=== PATIENT | male | born 2000 | race Caucasian/White ===

== ENCOUNTER 2020-07-30 13:26 | Emergency (ER) | payer OTHER, SELFPAY ==
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
--- NOTE | ~2020-07-30 | XR_ITS ---
EXAMINATION: XR clavicle LT INDICATION: Left clavicle pain, initial encounter TECHNIQUE: Two views of the left clavicle are obtained. COMPARISON: None available FINDINGS: There is an acute, traumatic, comminuted fractures of the mid clavicle. The distal fracture fragment is inferiorly displaced by one shaft width and overriding. Alignment at the acromioclavicul ar joint appears normal. Soft tissue swelling surrounds the fracture. IMPRESSION: 1. Comminuted, displaced and overriding fracture of the left mid clavicle. Reviewed, dictated and finalized at location A. ENT CENTERED CARE SPECIALIST
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
--- NOTE | ~2020-07-30 | XR_ITS ---
EXAMINATION: XR shoulder LT min 2V INDICATION: Left shoulder pain, initial encounter TECHNIQUE: Three views of the left shoulder are obtained. COMPARISON: None available FINDINGS: There is an acute, comminuted fracture of the mid clavicle. The distal fracture fragment is caudally displaced by one shaft width and overriding. Alignment at the acromioclavicular joint appea rs to be maintained. No additional acute fracture is identified. IMPRESSION: 1. Comminuted, displaced and overriding fracture of the mid clavicle. Reviewed, dictated and finalized at location A. ERIES MANAGEMENT BIOLOGIST
[2020-07-30 13:30] VITALS: BP 144/88; PULSE 72; RESP 18; TEMP 36.6; O2SAT 100
[2020-07-30] MEDS: ONDANSETRON INJ 4 MG/2 ML VIAL IV PUSH (14:46)
[2020-07-30] MEDS: MORPHINE SULFATE (*CRX) 4 MG/ML INJ 2 MG IV PUSH (14:47)
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
[2020-07-30 14:49] VITALS: BP 131/64; PULSE 70; RESP 18; O2SAT 100
[2020-07-30 15:17] VITALS: TEMP 36.6
[2020-07-30 15:19] VITALS: TEMP 36.6
--- NOTE | 2020-07-30 15:30 | PC.NURSE ---
[facility] accepted transfer to [facility] ETA 30min Trip # [phone]
--- NOTE | 2020-07-30 16:06 | PC.NURSE ---
Dr. Poole at bedside, states don't place sling at this time. Conchita WONG notified.
--- NOTE | 2020-07-30 16:46 | PC.NURSE ---
Patient transferred to [place] via [facility] at this time.
== END 2020-07-30 16:47 | disposition short-term general hospital (02) ==
PROVIDERS: Emergency Provider Emergency Medicine
DX: S42.022A Displaced fracture of shaft of left clavicle, initial encounter for closed fracture (principal); S12.691A Other nondisplaced fracture of seventh cervical vertebra, initial encounter for closed fracture; V86.55XA Driver of 3- or 4- wheeled all-terrain vehicle (ATV) injured in nontraffic accident, initial encounter
CPT/HCPCS: 70450; 71045; 72125; 72170; 73000; 73030; 73080; 96374; 96375; 99285; A4565; J0131; J2270; J2405

== ENCOUNTER 2023-03-12 07:58 | Outpatient (CLI) | payer OTHER, SELFPAY ==
--- NOTE | ~2023-03-12 | MR_ITS ---
EXAMINATION: MR knee LT wo con DATE: 03/12/2023 08:46 INDICATION: Patellar dislocation TECHNIQUE: Magnetic resonance imaging (MRI) of the left knee was performed without intravenous contra st. Sequences included coronal PD-weighted FSE, coronal PD-weighted FS FSE, sagittal T2-weighted FSE , sagittal PD-weighted FS FSE and axial PD weighted fat saturated FSE. COMPARISON: None. FINDINGS: Medial compartment: Medial meniscus is normal. There appears to be mild nonuniform partial-thickness cartilage loss with smooth chondral surface along the medial side of the medial tibial plateau and anterior weightbearing medial femoral condyle. There is mild subarticular edema-like marrow signal change along the medial rim of both the medial tibial plateau and anterior weightbearing medial femoral condyle. Lateral compartment: Lateral meniscus is normal. There is a nondisplaced linear low signal intensity fracture line along t he medial margin of the anterior weightbearing lateral femoral condyle likely related to a patellar d islocation/relocation injury. The overlying articular cartilage appears to remain normal as does the remaining articular cartilage in the lateral compartment. Patellofemoral compartment: There is an associated small nondisplaced osteochondral impaction fracture along the inferomedial mar gin of the medial patellar facet with focal mild depression of the bone and some fissuring of the ove rlying cartilage. Remaining articular cartilage is normal. Ligaments and tendons: Anterior and posterior cruciate ligaments are normal. The fibular collateral ligament complex is norm al. There is mild thickening and mild increased signal of the junction the medial patellofemoral reti naculum and the anterior margin of the proximal medial collateral ligament consistent with mild parti al tear. The more posterior majority of the cross-sectional area of the medial collateral ligament re maura normal. The quadriceps tendon is normal. Mild patellar tendinopathy without definite discrete t ear but with a few bands of magic angle artifact at the distal aspect of the tendon. The visualized m edial and lateral hamstring tendons as well as the iliotibial band are normal. Fluid: Moderate-sized layering lipohemarthrosis at the suprapatellar pouch. There is also subcutaneous edema about the knee most prominent posteriorly anteriorly and posteriorly. No loose osteochondral bodies identified. Osseous/other: Small region of cortically based low signal along the posterior metaphyseal region of the distal femu r without surrounding edema and with configuration of the low signal on axial images suggesting the s clerotic rim of old involuting fibrous cortical defect. There is marrow edema associated with the pre vious noted impaction fractures of the patella and medial femoral condyle. IMPRESSION: 1. Patellar dislocation/relocation injury pattern with impaction fractures at the medial rim of the a nterior weightbearing medial femoral condyle and anteroinferior patella, the latter with associated f ocal chondral injury. 2. Likely associated mild patellar tendinopathy and partial tear at the confluence of the medial haider llofemoral retinaculum and the proximal medial collateral ligament which appears otherwise grossly in tact. 3. Mild marrow edema along the medial rim of the medial tibial plateau and anterior weightbearing med ial femoral condyle with air appears to be some mild nonuniform partial-thickness cartilage loss in t his could be degenerative in etiology or related to additional bone contusions without discrete fract ure. 4. Moderate-sized lipohemarthrosis. 5. Cortically based lesion at the posterior metaphysis of the distal femur with location and appearan ce most consistent with a benign fibrous cortical defect but would recommend correlation with plain r adiographs for more definitive exclusion of any more concerning aggressive fe
== END 2023-03-12 07:59 | disposition home or self-care (01) ==
PROVIDERS: Visit Provider Family Medicine Sports Medicine
DX: M25.562 Pain in left knee (principal); M23.42 Loose body in knee, left knee; S83.005A Unspecified dislocation of left patella, initial encounter; M23.8X2 Other internal derangements of left knee
CPT/HCPCS: 73721

== ENCOUNTER 2023-07-15 14:02 | Emergency (ER) | payer OTHER, SELFPAY ==
--- NOTE | ~2023-07-15 | XR_ITS ---
XR ankle LT min 3V 07/15/2023 14:42 Indication: Left ankle pain Procedure: 3 views left ankle Comparison: No prior studies for comparison. Findings: There is a displaced medial malleolar fracture. The medial malleolus and talus are laterall y displaced with respect to the distal tibia. There is an oblique nondisplaced angulated fracture of the distal fibular diaphysis which is comminuted. There is also anterior translation of the talus wit h respect to the tibia. Impression: 1: Displaced fractures of the distal fibular diaphysis and medial malleolus with associated soft tiss ue swelling. Reviewed, dictated and finalized at location B. Impression: 1: Displaced fractures of the distal fibular diaphysis and medial malleolus wit h associated soft tissue swelling.
[2023-07-15 14:16] VITALS: BP 125/80; PULSE 130; RESP 20; TEMP 35.7; O2SAT 97
[2023-07-15 14:23] VITALS: BP 125/80; PULSE 130; RESP 20; TEMP 35.7; O2SAT 97
--- NOTE | 2023-07-15 14:34 | ED.LOWEXIN ---
HPI - Extremity Injury (Lower) General Chief Complaint: Extremity Injury, Lower Stated Complaint: Injured ankle Time Seen by Provider: 07/15/23 14:08 Source: patient Mode of arrival: ambulatory Limitations: no limitations History of Present Illness HPI Narrative: 0 1 is a 22-year-old male patient presenting to the clinic today with complaints of left ankle injury. This occurred around noon today while he was at work. States he was walking down an incline and slipped on some gravel and dirt. Thinks he may have everted his foot. Has moderate to severe swelling to the ankle. Rates pain at 8/10 currently. Related Data Allergies Allergy/AdvReac Type Severity Reaction Status Date / Time No Known Allergies Allergy Unverified 07/15/23 14:23 Review of Systems Review of Systems: Pertinent positives per HPI. Patient denies any fever, chills, rash, headache, visual changes, dizziness, cough, runny nose, sore throat, shortness of breath, chest pain, palpitations, nausea, vomiting, diarrhea, constipation, abdominal pain, or any urinary issues. [facility] Past Medical History Medical History No active medical problems Social History Social History Smoking status: Never smoker Substance use: never Gender identity (if verbalized by the patient): Male Comments At the time of my signature, I reviewed and agree with the nursing past medical, surgical, social, and family history. There is no relevant family history pertinent to the patient complaint. Exam Narrative: General: Well-developed, well nourished, in no apparent distress Head: Normocephalic, atraumatic. Cardio: Regular rate and rhythm, s1 and s2 normal, no murmur appreciated. Resp: Clear to auscultation bilaterally, no rhonchi, rales, wheezing or rubs. Musculoskeletal: No deformity, severe swelling to the left ankle noted with tenderness to palpation over the medial, limited range of motion due to pain and swelling, unable to walk on ankle without pain, muscle strength strong and equal, peripheral pulse strong, no edema, no cyanosis, normal gait and station Course Course Emergency Course: Portions of this record may have been created with voice recognition software. Level of Care: Express Care Visit Vital Signs Vital signs: Vital Signs Temperature 35.7 C L 07/15/23 14:16 Pulse Rate 130 H 07/15/23 14:16 Respiratory Rate 20 07/15/23 14:16 Blood Pressure 125/80 07/15/23 14:16 Pulse Oximetry 97 07/15/23 14:16 Oxygen Delivery Room Air 07/15/23 14:16 Temperature 35.7 C L 07/15/23 14:23 Pulse Rate 130 H 07/15/23 14:23 Respiratory Rate 20 07/15/23 14:23 Blood Pressure 125/80 07/15/23 14:23 Pulse Oximetry 97 07/15/23 14:23 Oxygen Delivery Room Air 07/15/23 14:23 Vital signs reviewed MDM - Extremity Injury (Lower) MDM Narrative Medical decision making narrative: At the time of visit patient is resting comfortably on the exam table. X-ray of the left ankle was performed and shows a medial malleolus fracture and displacement of the talus as well as a comminuted displaced fibula fracture. Contacted ortho on-call-Dr. Gibson and discussed case with him. He will see patient and the office this week. Short-leg posterior OCL applied and patient has his own crutches. Prescription for Wil[place] and Narcan was sent to the pharmacy. Supportive measures were discussed with the patient and the mother they voiced understanding discharge instructions agrees to treatment plan. Differential Diagnosis Differential diagnosis: Likely ankle sprain and strain and ankle fracture Imaging Data Radiologist's impression: ITS Impressions Ankle X-Ray 07/15/23 14:56 Impression: 1: Displaced fractures of the distal fibular diaphysis and medial malleolus with associated soft tissue swelling. Discharge Plan D
== END 2023-07-15 15:49 | disposition home or self-care (01) ==
PROVIDERS: Emergency Provider Nurse Practitioner Family
DX: S82.52XA Displaced fracture of medial malleolus of left tibia, initial encounter for closed fracture (principal); S82.832A Other fracture of upper and lower end of left fibula, initial encounter for closed fracture; W18.40XA Slipping, tripping and stumbling without falling, unspecified, initial encounter
CPT/HCPCS: 29515; 73610; 99214; G0463

== ENCOUNTER 2023-07-22 01:07 | Day surgery (SDC) | payer OTHER, SELFPAY ==
[2023-07-19 11:02] VITALS: BMI 36.2
--- NOTE | 2023-07-19 11:06 | PC.NURSE ---
Report to the Outpatient Waiting Room, entrance under the green pavilion located off [facility], at time 1230 on date 07/22/23. Planned Procedure Time: 1430. Time changes happen often and if your time is changed the preop area will call you the afternoon before. - You and your visitor will be asked to self-screen and do not enter if you have any COVID symptoms. - A mask is optional within the hospital at this time. Patients may have clear liquids (water, carbonated beverages, clear teas, apple juice) until 3 hours prior to surgery with a maximum of 20 ounces. - No food from midnight until time of surgery Take the following medications with a SIP of water the morning of surgery: PAIN PILL IF NEEDED DO NOT STOP ANY OF YOUR OTHER PRESCRIPTION MEDICATIONS PRIOR TO SURGERY ?EXCEPT THE FOLLOWING Medications to discontinue per physician: IBUPROFEN Date to take last dose: PT STATES DR. NATARAJAN SAID IT WAS OK TO CONTINUE Please no make-up, nail mohawk, hairspray, perfume, deodorant, or body powder the day of surgery. No jewelry (including any body piercings) or valuables the day of surgery, leave them at home. Please take a shower or bath the night before, or the morning of, surgery with an antibacterial soap. Wear comfortable, loose fitting clothing. - Jewelry must be removed prior to entering the operating room. Rings and piercings that are not removed may be cut off. - The hospital will not accept responsibility for valuables. - Please leave all valuables, including medications, at home the day of surgery. If you are going home after surgery, a licensed trash collector truck driver must drive you home. - NO public transportation without another adult if you receive anesthesia. - We recommend that an adult stay with you for 24 hours following discharge. - We also recommend that you do not drive, make important decision, drink alcoholic beverages, or take any drugs that were not prescribed by your health care provider for at least 24 hours after your discharge time. Follow any additional instructions given to you from your surgeon. If you or anyone in your household have experienced Covid symptoms in the past week, please notify your surgeon or the nurse liaison at the phone number below for possible testing. Telephone instructions given to PT - WESLEY ROCKWELL and asked if any additional questions and then verbalized understanding. Patient advised to call surgeon office or pre surgery nurse liaison [phone] if any additional questions.
[2023-07-22] VITALS (9 sets, daily range): BP systolic 132–161; BP diastolic 78–99; PULSE 90–108; RESP 12–18; TEMP 36.1–37.5; O2SAT 93–100
--- NOTE | ~2023-07-22 | XR_ITS ---
XR surgery orthopedic Indication: Intraoperative fixation of bimalleolar fracture TECHNIQUE: Fluoroscopy used during Intraoperative fixation of bimalleolar fracture performed by [Adarsh Gibson MD] on 07/22/2023. 2 minutes 25 seconds of fluoroscopy with 7 fluoroscopic image s captured. ] FINDINGS: Correlate with procedure note. IMPRESSION: Fluoroscopy used during Intraoperative fixation of bimalleolar fracture. Distal fibular a nd medial malleolar fractures are in anatomic alignment post surgical reduction with fibular sideplat e and screws. Reviewed, dictated and finalized at location A. IMPRESSION: Fluoroscopy used during Intraoperative fixation of bimalleolar frac ture. Distal fibular and medial malleolar fractures are in anatomic alignment p ost surgical reduction with fibular sideplate and screws.
--- NOTE | 2023-07-22 13:15 | P.PNAN_ITS ---
Anes - Initial Pre Proc Eval Procedure: Operation Date: 07/22/23 14:30 Proposed Procedures p Open Reduction Internal Fixation Bimalleolar Fracture Left Ankle With Tibia- Fibula Syndesmosis - Adarsh Gibson MD Date/Time: 07/22/23 13:15 Surgeon: Adarsh Gibson MD Pre Op Diagnosis: Bimalleolar Fx Rt Ankle Patient Data Age: 22 Gender: M Height: 1.91 m Weight: 131.55 kg Allergies Allergy/AdvReac Type Severity Reaction Status Date / Time No Known Allergies Allergy Verified 07/19/23 11:01 Home Medications Medication Instructions Recorded Confirmed Type hydrocodone 7.5 mg-acetaminophen 1 tablet PO Q6H PRN pain 3 days 07/19/23 07/19/23 Rx 325 mg tablet #30 tabs ibuprofen 600 mg tablet 600 mg PO QID PRN Pain 07/19/23 07/19/23 History Patient hx anesthesia problems: none Family hx anesthesia problems: other (brother slow to awaken) Results Review: All pre-operative results and documents have been reviewed as part of the pre- operative evaluation. [facility], [facility] Past Medical History Medical History Closed nondisplaced fracture of right lateral C7 vertebra Hx of fracture of clavicle No active medical problems Family History Family History Mother Hypertension Father Hypertension Social History Social History Smoking status: Never smoker Alcohol intake: current Drinks per week: 4 Alcohol use details: WEEKENDS Substance use: never Substance use type: does not use Lack of Transportation: No Lack of Food: Never True Current Housing: I Have Housing Concerned About Future Housing: No Difficulty Paying Gas/Electric Bills: No Difficulty Paying for Meds: No Education: High School Diploma/GED Difficulty w/ Childcare or Family Care: No Living arrangements: with family Gender identity (if verbalized by the patient): Male Spiritual care concerns: No Anes - Eval Final PreProcedure Day of Procedure 07/22/23 13:15 Patient weight: obese Heart: regular rate and rhythm Lungs: clear to auscultation Airway: Mallampati scale class II Neurological: alert and oriented Last oral intake: >/= 8 hours ASA classification: II Emergent: no Anesthetic plan: proceed Anesthesia type and monitoring: general LMA and standard monitoring Results Review: All pre-operative results and documents have been reviewed as part of the pre- operative evaluation. Informed Consent: The patient's anesthetic plan and its attendant risks and benefits were discussed with the patient/family/POA. Questions were solicited and answers provided to the satisfaction of the patient/family/POA.
[2023-07-22] MEDS: LACTATED RINGERS 1,000 ML 30 ML IV CONT ×2 (13:45→18:14)
[2023-07-22] MEDS: KETOROLAC 15 MG/ML VIAL (*BKC) IV PUSH (13:52)
[2023-07-22] MEDS: ACETAMINOPHEN 500 MG TABLET 1000 MG PO (13:52)
--- NOTE | 2023-07-22 14:40 | WPDHPUPDATE1 ---
History and Physical Update Update Date/Time: 07/22/23 14:40 History and Physical has been reviewed, including an updated exam of the patient. There are NO changes in the patient's condition. Risks, benefits, and alternatives have been discussed and questions answered. Patient agrees to proceed with procedure.
[2023-07-22] MEDS: ceFAZolin 3 GM/D5W 100 ML 100 ML IVPB (14:46)
[2023-07-22] MEDS: BUPIVACAINE/EPINEPHRINE 0.5% 50 ML VIAL 30 ML INFILTRATE (15:26)
--- NOTE | 2023-07-22 18:27 | W.PM.PROC2 ---
Procedure Note - Detailed Date of Procedure 07/22/23 Pre-op Diagnosis Bimalleolar Fx Rt Ankle, tib fib syndesmosis disruption. Post-op Diagnosis Same Procedure Performed ORIF bimalleolar ankle fracture with tibia- fibula syndesmosis fixation. Surgeon Adarsh Gibson MD Anesthesia General Findings Baker C fracture with proximal extension and comminution. Significant fracture blisters medial and lateral. These were drained and treated with Xeroform gauze. Description of Procedure A general anesthetic was administered. The limb was prepped and draped in the usual sterile fashion with a well-padded tourniquet high on the thigh. A bump was placed under the hip. The limb was exsanguinated and the tourniquet inflated to 300 millimeters of mercury during the procedure. A longitudinal incision was created at the distal fibula. Careful dissection was carried down to bone. Perineal nerve branches were protected. The fracture was carefully exposed. Callus and debris was irrigated from the wound. The fracture was brought out to length. Reduction was accomplished with the reduction forceps. The fixation plate was contoured. Fixation was performed with a combination of cortical and cancellous screws. Fluoroscopy was used throughout the procedure to confirm anatomic reduction and appropriate placement of the implants. The medial malleolus was exposed with a longitudinal incision. The fracture was cleared of debris and irrigated. Anatomic reduction was obtained with the reduction tool. Biplanar fluoroscopy was used to assess the fracture reduction and guide placement of the K-wire. Two K-wires were placed parallel across the fracture site. The screw lengths were measured and drilled distally only. The long, partially threaded screws were placed, and the K-wires removed. The syndesmosis was provisionally closed with the reduction clamp which aided in appropriate fixation of the fibula. After fixation of the medial malleolus and the fibula the syndesmosis was statically nearly reduced but dynamically unstable. Two K-wires were placed through the plate and across the syndesmosis proximal to the joint line. These were over drilled after confirmation of appropriate placement, and then the tight rope full placed. They were sequentially tightened and the syndesmosis maintained a very anatomic position. It was tested and found to be very secure. The tourniquet was released. Meticulous hemostasis was obtained. Wounds were closed in layers with 2-0 Vicryl suture 3-0 Monocryl suture and valerio. A sterile dressing with well padded posterior splint was applied. The patient was extubated and brought to the recovery room in stable condition. There were no complications. Implants Arthrex 1/3 tubular plate 12 hole. Multiple compression and locking screws. 4.0 mm cannulated screws for the medial malleolar fracture. Tight rope suture button fixation x2 for the syndesmosis. Estimated Blood Loss -50.0 Tourniquet Time 90 Complications No immediate complications Condition Stable Disposition [facility] - Charge Forward: Surgery Billing
[2023-07-22] MEDS: fentaNYL CITRATE INJ (*CRX) 100 MCG/2 ML VIAL 25 MCG IV PUSH ×6 (18:29→18:55)
[2023-07-22] MEDS: oxyCODONE HCL (*CRX) 5 MG TAB IR PO (19:35)
== END 2023-07-22 20:26 | disposition home or self-care (01) ==
PROVIDERS: Visit Provider Orthopaedic Surgery
PROC: (CPT 27814; principal; 2023-07-22 14:30)
DX: S93.431A Sprain of tibiofibular ligament of right ankle, initial encounter (principal); S82.841A Displaced bimalleolar fracture of right lower leg, initial encounter for closed fracture; Z79.891 Long term (current) use of opiate analgesic; E66.9 Obesity, unspecified; Z68.38 Body mass index [BMI] 38.0-38.9, adult; W17.2XXA Fall into hole, initial encounter
CPT/HCPCS: 27814; 27829; 99199; A9270; C1713; C1769; J0690; J1100; J1170; J1885; J2250; J2270; J2405; J2704; J3010; J7120

== ENCOUNTER 2023-10-01 13:57 | Outpatient (CLI) | payer OTHER, SELFPAY ==
--- NOTE | ~2023-10-01 | XR_ITS ---
EXAM: XR ankle LT min 3V DATE: 10/01/2023 14:11 HISTORY: Z47.89 -FOLLOW UP. LT ANKLE FX/SX 07/15 . COMPARISON: 08/30/2023, images only. 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 Uncomplicated appearing screw and plat e fixation of the left fibula. Uncomplicated screw fixation of the medial malleolus. Stable syndesmot ic fixation. Continued healing change in the distal fibular and medial malleolus fractures. No new ac kaiser fracture or dislocation. No lytic or blastic lesion. Joint spaces are maintained. No erosion or p eriosteal change. Soft tissues within normal limits. IMPRESSION: Evolving healing change in the distal left fibular and left medial malleolus fractures. S tatus post ORIF, no radiographic evidence of hardware complication. Reviewed, dictated and finalized at location K. SPOOLER IMPRESSION: Evolving healing change in the distal left fibular and left medial malleolus fractures. Status post ORIF, no radiographic evidence of hardware com plication.
== END 2023-10-01 13:58 | disposition home or self-care (01) ==
PROVIDERS: Visit Provider Orthopaedic Surgery
DX: S82.832D Other fracture of upper and lower end of left fibula, subsequent encounter for closed fracture with routine healing (principal); X58.XXXD Exposure to other specified factors, subsequent encounter; Z47.89 Encounter for other orthopedic aftercare
CPT/HCPCS: 73610

== ENCOUNTER 2024-11-13 10:57 | Outpatient (CLI) | payer OTHER, SELFPAY ==
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
--- OUTSIDE RECORDS SUMMARY | 2024-11-13 11:32 | XMS_ITS | Encounter Summary ---
Author Organization [facility] Address [address] [place]: [place] [address] Care Team Providers Care Enterprise Systems Manager Name Role Phone Brock Simpson MD Primary Care Provider [phone] Encounter Details Date Type Department Care Team (Late st Contact Info) Description 2000 Inpatient Historical Paras Calderón MD NO ADDRESS ON FILE Brock Simpson MD [address] [place] [phone] Single liveborn, born in hospital, delivered without mention of delivery (Primary Dx) Social History Tobacco Use Types Packs/Day Years Used Date Smoking Tobacco: Never Assessed Sex and Gender Information Value Date Recorded Sex Assigned at Not on file 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
--- OUTSIDE RECORDS SUMMARY | 2024-11-13 11:32 | XMS_ITS | Referral Summary ---
Author Organization [facility] Address [address] [place] [address] Care Team Providers Care Process Owner Name Role Phone Unavailable Primary Care Provider Unavailabl e Source Comments [facility],non-owned Affiliates and Associated Physician Practices is amultiple site organization consisting of ambulatory clinics and hospital sitesin [place], [place], [place] and [place]. This disclosure is being madepursuant to the Care Everywhere program and may not contain all information available regarding this patient. Last updated 18.[facility] Allergies No known active allergies Medications * Be aware that medications may not be up to date on this document. Alwaysverify current medications with the patient. Medication Sig Dispensed Refills Start Date End Date Status albuterol HFA (VENTOLIN HFA) 108 (90 BASE) MCG/ACT inhalerIndications:In fluenza Inhale 2 puffs by mouth every 6 hours as needed for Wheezing or Cough 1 Inhaler 11/28/2018 Active fluticasone propionate (FLONASE) 50 MCG/ACT nasal sprayIndications:Acut e sinusitis, recurrence not specified, unspecified location [place] 2 sprays into each nostril once daily 1 bottles 11/28/2018 Active Active Problems No known active problems Social History Tobacco Use Types Packs/Day Years Used Date Smoking Tobacco: Never Smokeless Tobacco: Never Comments:non smoking househo ld Sex and Gender Information Value Date Recorded Sex Assigned at Not on file Gender Identity Not on file Sexual Orientation Not on file Last Filed Vital Signs Vital Sign Reading Time Taken Comments Blood Pressure 108/72 11/28/2018 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
--- OUTSIDE RECORDS SUMMARY | 2024-11-13 11:32 | XMS_ITS | Referral Summary ---
Author Organization [facility] [facility] [place] Address [address] [place] [address] Care Team Providers Care Animal Handler Name Role Phone Unknown, Notinfile Primary Care Provider Unavail able Allergies No known active allergies Medications ibuprofen 200 mg tab/cap Take 1 tablet/caps ule (200 mg total) by mouth every 6 (six) hours as needed for pain Active Active Problems Problem Noted Date Diagnosed Date Spinal stenosis in cervical region 08/09/2020 Overview (08/09/2020): Added automatically from request for surgery [id number] Closed displaced fracture of seventh cervical ve rtebra 08/09/2020 Overview (08/09/2020): Added automatically from request for surgery [id number] Closed displaced fracture of sixth cervical vertebra with delayed healing 08/05/2020 Overview (08/05/2020): Added automatically from request for surgery [id number] Closed fracture of right side of occipital [...] (07/31/2020): Added automatically from request for surgery [id number] Immunizations Immunization Administration Dates Next Due DTaP [...] Polio, Unspecified 12/31/2001 Tdap 04/24/2011 Varicella 04/14/2015,03/25/2002 Social History Tobacco Use Types Packs/Day Years Used Date Smoking Tobacco: Never Smokeless Tobacco: Never Tobacco Cessation:Counseling Given: Not Answered Alcohol Use Standard Drinks/Week Comments No 0 (1 standard drink = 0.6 oz pur e alcohol) Sex and Gender Information Value Date Recorded Sex Assigned at Not on file 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 Gender Identity Not on file Sexual Orientation [...] 04/15/2023 9:16 AM CDT Plan of Treatment Not on file Medical Devices Implanted Type Area Lapidarist Device Identifier Shelf Expiration Date Model / Serial / Lot [employer]/Orth o [id number] Evos Mini 2.4mm 24mm Self Tap Cortex T7 Screw Bone Sterile - [id number] Implanted:Qty: 1 on 07/31/2020 by Vlad Rodríguez MD at [facility] Left: Clavicle [employer]/Ort ho [id number] / / [employer]/Orth o [id number] Evos 130mm 12 Hole Midshaft Clavicle Left Superior Small Plate - [id number] Implanted:Qty: 1 on 07/31/2020 by Marcos, Vlad Portillo MD at [facility] Left: Clavicle [employer]/Ort ho [id number] / / [employer]/Orth o [id number] Evos 2.4mm 16mm Self Tap Self Retaining Drive Small Bone Long - [id number] Implanted:Qty: 1 on 07/31/2020 by Vlad Rodríguez MD at [facility] Left: Clavicle [employer]/Ort ho [id number] / / [employer]/Orth o [id number] Evos Mini 2.4mm 24mm Self Tap Cortex T7 Screw Bone Sterile - [id number] Implanted:Qty: 1 on 07/31/2020 by Vlad Rodríguez MD at [facility] Left: Clavicle [employer]/Ort ho [id number] / / [employer]/Orth o [id number] Evos 2.4mm 14mm Self Tap Self Retaining Drive Small Bone Long - [id number] Implanted:Qty: 2 on 07/31/2020 by Vlad Rodríguez MD at [facility] Left: Clavicle [employer]/Ort ho [id number] / / [employer]/Orth o [id number] 2.4mm 3.8mm 20mm Self Retaining Screwdriver Self Tap Flat Head - [id number] Implanted:Qty: 2 on 07/31/2020 by Vlad Rodríguez MD at [facility] Left: Clavicle [employer]/Ort ho [id number] / / [employer]/Orth o [id number] Evos 3.5mm 12mm Self Tap Cortex Screw Bone Sterile - [id number] Implanted:Qty: 1 on 07/31/2020 by Vlad Rodríguez MD at [facility] Left: Clavicle [employer]/Ort ho [id number] / / [employer]/Orth o [id number] Evos 3.5mm 16mm Self Tap Cortex Screw Bone Sterile - [id number] Implanted:Qty: 2 on 07/31/2020 by Marcos, Vlad Portillo MD at [facility] Left: Clavicle [employer]/Ort ho [id number] / / [employer]/Orth o [id number] Evos 3.5mm 26mm Self Tap Cortex Screw Bone Sterile - [id number] Implanted:Qty: 1 on 07/31/2020 by Vlad Rodríguez MD at [facility] Left: Clavicle [employer]/Ort ho [id number] / / [employer]/Orth o [id number] Evos 3.5mm 22mm Self Tap Cortex Screw Bone Sterile - [id number] Implanted:Qty: 1 on 07/31/2020 by Vlad Rodríguez MD at [facility] Left: Clavicle [employer]/Ort ho [id number] / / [employer]/Orth o [id number] Evos Mini 121mm 20 Hole Flex Low Profile Variable Angle Small - [id number] Implanted:Qty: 1 on 07/31/2020 by Vlad Rodríguez MD at [facility] Left: Clavicle [employer]/Ort ho [id number] / / Musculoskeletal Transplant [id number] 12.6z20n5fb Frozen Spine 7d Lordotic Trapezoid Spacer Allograft - [id number] - [id number] Implanted:Qty: 1 on 08/23/2020 by Daniel Clement MD at [facility] N/A: Spine Cervical Musculoskeletal Transplant 01/29/2025 [id number] / [id number] / Musculoskeletal Transplant [id number] 12.0x81u1is Frozen Spine 7d Lordotic Trapezoid Spacer Allograft - [id number] - [id number] Implanted:Qty: 1 on 08/23/2020 by Daniel Clement MD at [facility] N/A: Spine Cervical Musculoskeletal Transplant 01/29/2025 [id number] / [id number] / [employer] [id number] 34mm 2 Level Spine Plate Bone - [id number] Implanted:Qty: 1 on 08/23/2020 by Daniel Clement MD at [facility] [employer] [id number] 34 / / [employer] [id number] Maxan 4mm 14mm Fix Angle Spine Screw Bone - [id number] Implanted:Qty: 2 on 08/23/2020 by Daniel Clement MD at [facility] [employer] 14-5215 14 / / [employer] [id number] 4mm 16mm Fix Screw Bone - [id number] Implanted:Qty: 4 on 08/23/2020 by Daniel Clement MD at [facility] [employer] 14-5215 16 / / Insurance A[employer] SIG [id number] [employer] COMMERCIAL GENERIC [facility] Advance Directives For more information, please contact: [phone] * Full Code (Latest Code Status on File) Date Activated Date Inactivated Comments 08/23/2020 3:47 PM 08/24/2020 6:32 PM * Full Code Date Activated Date Inactivated Comments 07/31/2020 1:40 AM 08/02/2020 12:07 AM Care Teams Animal Handler Relationship Specialty Start Date End Date Unknown, Notinfile PCP - General 09/25/24
--- OUTSIDE RECORDS SUMMARY | 2024-11-13 11:32 | XMS_ITS | Clinical Summary ---
Author Organization [facility] Address [address] [place] [address] Care Team Providers Care Natural History Collections Curator Name Role Phone Unavailable Primary Care Provider Unavailabl e Source Comments [facility],non-owned Affiliates and Associated Physician Practices is amultiple site organization consisting of ambulatory clinics and hospital sitesin [place], [place], [place] and [place]. This disclosure is being madepursuant to the Care Everywhere program and may not contain all information available regarding this patient. Last updated 18.[facility] Allergies No known active allergies Medications * [...] e sinusitis, recurrence not specified, unspecified location [place] 2 sprays into each nostril once daily 1 bottles 11/28/2018 Active Active Problems No known active problems Family History Medical History Relation Name Comments Hyperlipidemia Father Hypertension Father Hypertension Mother Relation Name Status [...] Comments Blood Pressure 108/72 11/28/2018 5:24 PM TRANSIT DRIVER Pulse 104 11/28/2018 5:24 PM TRANSIT DRIVER Temperature 37.2 C (98.9 F) 11/28/2018 5:24 PM TRANSIT DRIVER Respiratory Rate 16 11/28/2018 5:24 PM TRANSIT DRIVER Oxygen Saturation 97% 11/28/2018 5:24 PM TRANSIT DRIVER Inhaled Oxygen Concentration - - Weight 124.3 kg (274 lb) 11/28/2018 5:24 PM TRANSIT DRIVER Height 190.5 cm (6' 3 ) 11/28/2018 5:24 PM TRANSIT DRIVER Body Mass Index 34.25 11/28/2018 5:24 PM TRANSIT DRIVER Plan of Treatment Health Maintenance Due Date Last Done Comments HIV SCREENING 12/12/2015 HPV VACCINE (1 - Male 3-dose series) 12/12/2015 MENINGOCOCCAL (Group B) VACC INE (1 of 2 - Standard) 2016 HEPATITIS C SCREENING 12/07/2018 DTAP/TDAP/TD VACCINES (1 - Tdap) 12/12/2019 HEPATITIS B VACCINE (1 of 3 - 19+ 3-dose series) 12/12/2019 COVID-19 VACCINE (1 - 2023-2 5 season) 2024 INFLUENZA VACCINE (#1) 2024 07/31/2020 DEPRESSION SCREENING 09/23/2024 ZOSTER VACCINE (1 of 2) 2050 HIB VACCINE Aged Out No longer eligi ble based on patient's age to complete this topic MENINGOCOCCAL VACCINE Aged Out No andrew carmela eligible based on patient's age to complete this topic PNEUMOCOCCAL VACCINE Aged Out No long er eligible based on patient's age to complete this topic
--- OUTSIDE RECORDS SUMMARY | 2024-11-13 11:32 | XMS_ITS | Clinical Summary ---
Author Organization [facility] Address [address] 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
--- OUTSIDE RECORDS SUMMARY | 2024-11-13 11:33 | XMS_ITS | Clinical Summary ---
Author Organization [facility] Address [address] [place] [address] Care Team Providers Care Clinical Trial Assistant Name Role Phone None, Provider MD Primary Care Provider Unavaila ble Social History Tobacco Use Types Packs/Day Years Used Date Smoking Tobacco: Never Assessed Sex and Gender Information Value Date Recorded Sex Assigned at Not on file Legal Sex Male 12:24 PM CDT Gender Identity Not on file Sexual Orientation Not on file Plan of Treatment Health Maintenance Due Date Last Done Comments Annual Physical 12/12/2003 PHQ-2 (Physician [employer]) 2012 HPV Vaccines (1 - Male 3-dos e series) 12/12/2015 Meningococcal B Vaccine (1 o f 2 - Standard) 2016 Hepatitis C 2018 DTaP, Tdap and Td Vaccines ( 1 - Tdap) 12/12/2019 Hepatitis B Vaccines (1 of 3 - 19+ 3-dose series) 12/12/2019 COVID-19 Vaccine (1 - 2023-2 5 season) 2024 Influenza Adult (#1) 2024 PHQ-2 (Physician [employer]) 09/23/2024 Meningococcal Vaccine Aged Out No andrew carmela eligible based on patient's age to complete this topic Pneumococcal Vaccine: Pediat rics (0 to 5 Years) and At-Risk Patients (6 to 64 Years) Aged Out No longer eligible b ased on patient's age to complete this topic RSV Immunizations Under 20 Months Aged Out No longer eligible based on patient's age to complete this topic Insurance [employer] Care Teams Clinical Trial Assistant Relationship Specialty Start Date End Date None, Provider, PCP - General UNKNOWN PHYSICIAN SPECIALTY 02/26/23
--- OUTSIDE RECORDS SUMMARY | 2024-11-13 11:33 | XMS_ITS | Patient Health Summary ---
Author Organization [facility] Address [address] [place] [address] Care Team Providers Care Civil Project Engineer Name Role Phone Unavailable Primary Care Provider Unavailabl e Note from [facility],non-owned Affiliates and Associated Physician Practices is amultiple site organization consisting of ambulatory clinics and hospital sitesin [place], [place], [place] and [place]. This disclosure is being madepursuant to the Care Everywhere program and may not contain all information available regarding this patient. Last updated 18.[facility] Allergies No known active allergies Medications * Be aware that medications may not be up to date on this document. Alwaysverify current medications with the patient. * albuterol HFA (VENTOLIN HFA) 108 (90 BASE) MCG/ACT inhaler(Started 11/28/2018) Inhale 2 puffs by mouth every 6 hours as needed for Wheezing or Cough * fluticasone propionate (FLONASE) 50 MCG/ACT nasal spray(Started 11/28/2018) [place] 2 sprays into each nostril once daily Active Problems No known active problems Social History Tobacco Use Types Packs/Day Years Used Date Smoking Tobacco: Never Smokeless Tobacco: Never Comments:non smoking househo Sex and Gender Information Value Date Recorded Sex Assigned at Not on file Gender Identity Not on file Sexual Orientation Not on file Last Filed Vital Signs Vital Sign Reading Time Taken Comments Blood Pressure 108/72 11/28/2018 5:24 PM GROUNDWATER MONITORING TECHNICIAN Pulse 104 11/28/2018 5:24 PM GROUNDWATER MONITORING TECHNICIAN Temperature 37.2 C (98.9 F) 11/28/2018 5:24 PM GROUNDWATER MONITORING TECHNICIAN Respiratory Rate 16 11/28/2018 5:24 PM GROUNDWATER MONITORING TECHNICIAN Oxygen Saturation 97% 11/28/2018 5:24 PM GROUNDWATER MONITORING TECHNICIAN Inhaled Oxygen Concentration - - Weight 124.3 kg (274 lb) 11/28/2018 5:24 PM GROUNDWATER MONITORING TECHNICIAN Height 190.5 cm (6' 3 ) 11/28/2018 5:24 PM GROUNDWATER MONITORING TECHNICIAN Body Mass Index 34.25 11/28/2018 5:24 PM GROUNDWATER MONITORING TECHNICIAN Procedures * STREP A SCREEN - POINT OF CARE (AMB) STL(Performed 11/28/2018) Performed for Sore throat * INFLUENZA A+B - POINT OF CARE (AMB)(Performed 11/28/2018) Performed for Influenza Results * STREP A SCREEN - POINT OF CARE (AMB) STL (11/28/2018) Strep A Rapid POCT Negative Negative Strep A Internal Control Present Lot # [id number] Expiration Date 06/22/20 Throat ENTIRE THROAT (SURFACE REGION OF NECK) / Unknown 11/28/2018 Bird Calloway BEAUTY CULTURE TEACHER-PAYMENT MANAGER LAB - POINT OF CARE ORDERABLES * (ABNORMAL) INFLUENZA A+B - POINT OF CARE (AMB) (11/28/2018) Influenza A Antigen Rapid Positive(A) Negative Influenza B Antigen Rapid Negative Negative Influenza Internal Control neg/pos NEGATIVE - POSITIVE Influenza Lot Number [id number] Influenza Expiration Date 06/16/20 Other NASOPHARYNGEAL SWAB / Unknown 11/28/2018 Bird Calloway BEAUTY CULTURE TEACHER-PAYMENT MANAGER LAB - POINT OF CARE ORDERABLES
[2024-11-13 14:53] LABS: Basophils Absolute Auto 0.1 K/mm3 (0.0-0.1); Basophils Percent Auto 0.8 % (0.2-1.2); Eosinophils Absolute Auto 0.2 K/mm3 (0-0.3); Eosinophils Percent Auto 2.9 % (0-4.4); Hematocrit 49.8 % (42.0-52.0); Hemoglobin 16.1 g/dL (14.0-18.0); Immature Granulocyte Absolute 0.03 K/mm3 (0.00-0.031); Immature Granulocyte Percent A 0.4 % (0-0.5); Lymphocytes Absolute Auto 2.37 K/mm3 (0.9-3.2); Lymphocytes Percent Auto 28.3 % (18.3-44.2); Mean Corpuscular HGB Conc 32.3 g/dl (32-36); Mean Corpuscular Hemoglobin 29.5 pg (26-34); Mean Corpuscular Volume 91.4 fl (80-100); Mean Platelet Volume 11.8 fl (7.4-10.4); Monocytes Absolute Auto 0.6 K/mm3 (0.1-0.6); Monocytes Percent Auto 6.9 % (2.6-8.5); Neutrophils Absolute Auto 5.1 K/mm3 (1.3-6.7); Neutrophils Percent Auto 60.7 % (45.5-73.1); Platelet Count Result 232 k/mm3 (150-375); Red Blood Count 5.45 M/mm3 (4.6-6.20); Red Cell Distribution Width 12.7 % (11.5-14.5); White Blood Count 8.4 K/mm3 (4.5-10.0)
[2024-11-13 14:55] LABS: Alanine Aminotransferase 36 U/L (6-50); Albumin Level 4.3 g/dL (3.5-5.1); Alkaline Phosphatase 63 U/L (38-126); Anion Gap 13 mmol/L (4-12); Aspartate Amino Transferase 35 U/L (17-59); Bilirubin,Total 0.5 mg/dL (0.2-1.3); Blood Urea Nitrogen 19 mg/dL (9-20); Calcium 9.7 mg/dL (8.4-10.2); Carbon Dioxide 26 mmol/L (22-30); Chloride 105 mmol/L (98-107); Cholesterol 257 mg/dL (0-200); Estimated Glomerular Filt Rate > 60; Glucose 88 mg/dL (65-110); HDL Direct 56 mg/dL; Potassium 4.4 mmol/L (3.4-5.0); Sodium 144 mmol/L (137-145); Triglycerides 130 mg/dL (<150)
[2024-11-13 15:05] LABS: LDL Cholesterol Direct 146 mg/dL
[2024-11-13 15:40] LABS: Vitamin D 25 Hydroxy 27.8 ng/mL
[2024-11-13 16:28] LABS: Iron 127 ug/dL (49-181)
== END 2024-11-13 10:58 | disposition home or self-care (01) ==
LOC: ANHGOSHLAB 10:59
PROVIDERS: PCP Nurse Practitioner Family; Visit Provider Nurse Practitioner Family
DX: E55.9 Vitamin D deficiency, unspecified (principal); Z00.00 Encounter for general adult medical examination without abnormal findings; Z13.220 Encounter for screening for lipoid disorders; Z83.49 Family history of other endocrine, nutritional and metabolic diseases
CPT/HCPCS: 36415; 80053; 80061; 82306; 83540; 84443; 85025

== ENCOUNTER 2024-11-18 10:36 | Outpatient (CLI) | payer OTHER, SELFPAY ==
--- OUTSIDE RECORDS SUMMARY | 2024-11-18 12:02 | XMS_ITS | Clinical Summary ---
Author Organization [facility] Address [address] 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
--- OUTSIDE RECORDS SUMMARY | 2024-11-18 12:02 | XMS_ITS | Encounter Summary ---
Author Organization [facility] Address [address] [place]it: [place] [address] Care Team Providers Care Appraiser Oil And Water Name Role Phone Brock Simpson MD Primary Care Provider [phone] Encounter Details Date Type Department Care Team (Late st Contact Info) Description 2000 Inpatient Historical Paras Calderón MD NO ADDRESS ON FILE Brock Simpson MD [address] [place] [phone] Single liveborn, born in hospital, delivered without mention of delivery (Primary Dx) Social History Tobacco Use Types Packs/Day Years Used Date Smoking Tobacco: Never Assessed Sex and Gender Information Value Date Recorded Sex Assigned at Not on file 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
--- OUTSIDE RECORDS SUMMARY | 2024-11-18 12:02 | XMS_ITS | Patient Health Summary ---
Author Organization [facility] Address [address] [address] Care Team Providers Care Press Writer Name Role Phone Unavailable Primary Care Provider Unavailabl e Note from [facility],non-owned Affiliates and Associated Physician Practices is amultiple site organization consisting of ambulatory clinics and hospital sitesin [place], [place], [place] and [place]. This disclosure is being madepursuant to the Care Everywhere program and may not contain all information available regarding this patient. Last updated 18.[facility] Allergies No known active allergies Medications * Be aware that medications may not be up to date on this document. Alwaysverify current medications with the patient. * albuterol HFA (VENTOLIN HFA) 108 (90 BASE) MCG/ACT inhaler(Started 11/28/2018) Inh[place] 2 puffs by mouth every 6 hours as needed for Wheezing or Cough * fluticasone propionate (FLONASE) 50 MCG/ACT nasal spray(Started 11/28/2018) [place] 2 sprays into each nostril once daily [...] Comments Blood Pressure 108/72 11/28/2018 5:24 PM SPIRAL SPRING WINDER Pulse 104 11/28/2018 5:24 PM SPIRAL SPRING WINDER Temperature 37.2 C (98.9 F) 11/28/2018 5:24 PM SPIRAL SPRING WINDER Respiratory Rate 16 11/28/2018 5:24 PM SPIRAL SPRING WINDER Oxygen Saturation 97% 11/28/2018 5:24 PM SPIRAL SPRING WINDER Inhaled Oxygen Concentration - - Weight 124.3 kg (274 lb) 11/28/2018 5:24 PM SPIRAL SPRING WINDER Height 190.5 cm (6' 3 ) 11/28/2018 5:24 PM SPIRAL SPRING WINDER Body Mass Index 34.25 11/28/2018 5:24 PM SPIRAL SPRING WINDER Procedures * STREP A SCREEN - POINT OF CARE (AMB) STL(Performed 11/28/2018) Performed for Sore throat * INFLUENZA A+B - POINT OF CARE (AMB)(Performed 11/28/2018) Performed for Influenza Results * STREP A SCREEN - POINT OF CARE (AMB) STL (11/28/2018) Strep A Rapid POCT Negative Negative Strep A Internal Control Present Lot # [id number] Expiration Date 06/22/20 Throat ENTIRE THROAT (SURFACE REGION OF NECK) / Unknown 11/28/2018 Bird Calloway TIRE MOUNTER-BLAST FURNACE CHECKER LAB - POINT OF CARE ORDERABLES * (ABNORMAL) INFLUENZA A+B - POINT OF CARE (AMB) (11/28/2018) Influenza A Antigen Rapid Positive(A) Negative Influenza B Antigen Rapid Negative Negative Influenza Internal Control neg/pos NEGATIVE - POSITIVE Influenza Lot Number [id number] Influenza Expiration Date 06/16/20 Other NASOPHARYNGEAL SWAB / Unknown 11/28/2018 Bird Calloway TIRE MOUNTER-BLAST FURNACE CHECKER LAB - POINT OF CARE ORDERABLES
--- OUTSIDE RECORDS SUMMARY | 2024-11-18 12:02 | XMS_ITS | Referral Summary ---
Author Organization [facility] [facility] [place] Address [address] [place] [address] Care Team Providers Care Coagulant Dipper Name Role Phone Unknown, Notinfile Primary Care Provider Unavail able Allergies No known active allergies Medications ibuprofen 200 mg tab/cap Take 1 tablet/caps ule (200 mg total) by mouth every 6 (six) hours as needed for pain Active Active Problems Problem Noted Date Diagnosed Date Spinal stenosis in cervical region 08/09/2020 Overview (08/09/2020): Added automatically from request for surgery [id number] Closed displaced fracture of seventh cervical ve rtebra 08/09/2020 Overview (08/09/2020): Added automatically from request for surgery [id number] Closed displaced fracture of sixth cervical vertebra with delayed healing 08/05/2020 Overview (08/05/2020): Added automatically from request for surgery [id number] Closed fracture of right side of occipital [...] (07/31/2020): Added automatically from request for surgery [id number] Immunizations Immunization Administration Dates Next Due DTaP [...] on file Legal 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 Gender Identity Not on file Sexual [...] on file Medical Devices Implanted Type Area Child Psychometrist Device Identifier Shelf Expiration Date Model / Serial / Lot [employer]/Orth o [id number] Evos Mini 2.4mm 24mm Self Tap Cortex T7 Screw Bone Sterile - [id number] Implanted:Qty: 1 on 07/31/2020 by Vlad Rodríguez MD at [facility] Left: Clavicle [employer]/Ort ho [id number] / / [employer]/Orth o [id number] Evos 130mm 12 Hole Midshaft Clavicle Left Superior Small Plate - [id number] Implanted:Qty: 1 on 07/31/2020 by Marcos, Vlad Portillo MD at [facility] Left: Clavicle [employer]/Ort ho [id number] / / [employer]/Orth o [id number] Evos 2.4mm 16mm Self Tap Self Retaining Drive Small Bone Long - [id number] Implanted:Qty: 1 on 07/31/2020 by Vlad Rodríguez MD at [facility] Left: Clavicle [employer]/Ort ho [id number] / / [employer]/Orth o [id number] Evos Mini 2.4mm 24mm Self Tap Cortex T7 Screw Bone Sterile - [id number] Implanted:Qty: 1 on 07/31/2020 by Vlad Rodríguez MD at [facility] Left: Clavicle [employer]/Ort ho [id number] / / [employer]/Orth o [id number] Evos 2.4mm 14mm Self Tap Self Retaining Drive Small Bone Long - [id number] Implanted:Qty: 2 on 07/31/2020 by Vlad Rodríguez MD at [facility] Left: Clavicle [employer]/Ort ho [id number] / / [employer]/Orth o [id number] 2.4mm 3.8mm 20mm Self Retaining Screwdriver Self Tap Flat Head - [id number] Implanted:Qty: 2 on 07/31/2020 by Vlad Rodríguez MD at [facility] Left: Clavicle [employer]/Ort ho [id number] / / [employer]/Orth o [id number] Evos 3.5mm 12mm Self Tap Cortex Screw Bone Sterile - [id number] Implanted:Qty: 1 on 07/31/2020 by Vlad Rodríguez MD at [facility] Left: Clavicle [employer]/Ort ho [id number] / / [employer]/Orth o [id number] Evos 3.5mm 16mm Self Tap Cortex Screw Bone Sterile - [id number] Implanted:Qty: 2 on 07/31/2020 by Marcos, Vlad Portillo MD at [facility] Left: Clavicle [employer]/Ort ho [id number] / / [employer]/Orth o [id number] Evos 3.5mm 26mm Self Tap Cortex Screw Bone Sterile - [id number] Implanted:Qty: 1 on 07/31/2020 by Vlad Rodríguez MD at [facility] Left: Clavicle [employer]/Ort ho [id number] / / [employer]/Orth o [id number] Evos 3.5mm 22mm Self Tap Cortex Screw Bone Sterile - [id number] Implanted:Qty: 1 on 07/31/2020 by Vlad Rodríguez MD at [facility] Left: Clavicle [employer]/Ort ho [id number] / / [employer]/Orth o [id number] Evos Mini 121mm 20 Hole Flex Low Profile Variable Angle Small - [id number] Implanted:Qty: 1 on 07/31/2020 by Vlad Rodríguez MD at [facility] Left: Clavicle [employer]/Ort ho [id number] / / Musculoskeletal Transplant [id number] 12.0n33x1yw Frozen Spine 7d Lordotic Trapezoid Spacer Allograft - [id number] - [id number] Implanted:Qty: 1 on 08/23/2020 by Daniel Clement MD at [facility] N/A: Spine Cervical Musculoskeletal Transplant 01/29/2025 [id number] / [id number] / Musculoskeletal Transplant [id number] 12.9k17f6vs Frozen Spine 7d Lordotic Trapezoid Spacer Allograft - [id number] - [id number] Implanted:Qty: 1 on 08/23/2020 by Daniel Clement MD at [facility] N/A: Spine Cervical Musculoskeletal Transplant 01/29/2025 [id number] / [id number] / [employer] [id number] 34mm 2 Level Spine Plate Bone - [id number] Implanted:Qty: 1 on 08/23/2020 by Daniel Clement MD at [facility] [employer] [id number] / / [employer] [id number] Maxan 4mm 14mm Fix Angle Spine Screw Bone - [id number] Implanted:Qty: 2 on 08/23/2020 by Daniel Clement MD at [facility] [employer] [id number] 14 / / [employer] [id number] 4mm 16mm Fix Screw Bone - [id number] Implanted:Qty: 4 on 08/23/2020 by Daniel Clement MD at [facility] [employer] [id number] 16 / / Insurance AETNA SIG [id number] [employer] [facility] Advance Directives For more information, please contact: [phone] * Full Code (Latest Code Status on File) Date Activated Date Inactivated Comments 08/23/2020 3:47 PM 08/24/2020 6:32 PM * Full Code Date Activated Date Inactivated Comments 07/31/2020 1:40 AM 08/02/2020 12:07 AM Care Teams Coagulant Dipper Relationship Specialty Start Date End Date Unknown, Notinfile PCP - General 09/25/24
--- OUTSIDE RECORDS SUMMARY | 2024-11-18 12:02 | XMS_ITS | Clinical Summary ---
Author Organization [facility] Address [address] [place] [address] Care Team Providers Care Clam Bed Laborer Name Role Phone None, Provider MD Primary [...] Done Comments Annual Physical 12/12/2003 PHQ-2 ([employer]ician [employer] 2012 HPV Vaccines (1 - Male 3-dos e series) 12/12/2015 Meningococcal B Vaccine (1 o f 2 - Standard) 2016 Hepatitis C 2018 DTaP, Tdap and Td Vaccines ( 1 - Tdap) 12/12/2019 Hepatitis B Vaccines (1 of 3 - 19+ 3-dose series) 12/12/2019 COVID-19 Vaccine (1 - 2023-2 5 season) 2024 Influenza Adult (#1) 2024 PHQ-2 ([employer]ician [employer] 09/23/2024 Meningococcal Vaccine Aged Out No andrew [...] patient's age to complete this topic Insurance [facility] Care Teams Clam Bed Laborer Relationship Specialty Start Date End Date None, Provider, PCP - General UNKNOWN PHYSICIAN SPECIALTY 02/26/23
--- OUTSIDE RECORDS SUMMARY | 2024-11-18 12:02 | XMS_ITS | Clinical Summary ---
Author Organization [facility] [email or web address] Address [address] [place] [address] Care Team Providers Care Pharmacy Student Name Role Phone Unavailable Primary Care Provider Unavailabl e Source Comments [facility],non-owned Affiliates and Associated Physician Practices is amultiple site organization consisting of ambulatory clinics and hospital sitesin [place], [place], [place] and [place]. This disclosure is being madepursuant to the Care Everywhere program and may not contain all information available regarding this patient. Last updated 18.[facility] [email or web address] Allergies No known active allergies Medications * [...] e sinusitis, recurrence not specified, unspecified location [place] 2 sprays into each nostril once daily [...] Comments Blood Pressure 108/72 11/28/2018 5:24 PM FAMILY PARTNER Pulse 104 11/28/2018 5:24 PM FAMILY PARTNER Temperature 37.2 C (98.9 F) 11/28/2018 5:24 PM FAMILY PARTNER Respiratory Rate 16 11/28/2018 5:24 PM FAMILY PARTNER Oxygen Saturation 97% 11/28/2018 5:24 PM FAMILY PARTNER Inhaled Oxygen Concentration - - Weight 124.3 kg (274 lb) 11/28/2018 5:24 PM FAMILY PARTNER Height 190.5 cm (6' 3 ) 11/28/2018 5:24 PM FAMILY PARTNER Body Mass Index 34.25 11/28/2018 5:24 PM FAMILY PARTNER Plan of Treatment Health Maintenance Due Date [...]
--- OUTSIDE RECORDS SUMMARY | 2024-11-18 12:02 | XMS_ITS | Clinical Summary ---
Author Organization [address] [facility] Address [address] [place] [address] Care Team Providers Care Donor Services Team Leader Name Role Phone Unknown, Notinfile Primary Care Provider Unavail able Allergies No known active allergies Medications ibuprofen 200 mg tab/cap Take 1 tablet/caps ule (200 mg total) by mouth every 6 (six) hours as needed for pain Active Active Problems Problem Noted Date Diagnosed Date Spinal stenosis in cervical region 08/09/2020 Overview (08/09/2020): Added automatically from request for surgery [id number] Closed displaced fracture of seventh cervical ve rtebra 08/09/2020 Overview (08/09/2020): Added automatically from request for surgery [id number] Closed displaced fracture of sixth cervical vertebra with delayed healing 08/05/2020 Overview (08/05/2020): Added automatically from request for surgery [id number] Closed fracture of right side of occipital [...] (07/31/2020): Added automatically from request for surgery [id number] Immunizations Immunization Administration Dates Next Due DTaP [...] on file 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 Gender Identity Not on file Sexual Orientation [...] 04/14/2015, 03/25/2002 Medical Devices Implanted Type Area Equine Intern Device Identifier Shelf Expiration Date Model / Serial / Lot [employer]hew/[employer]/Orth o [id number] Evos Mini 2.4mm 24mm Self Tap Cortex T7 Screw Bone Sterile - [id number] Implanted:Qty: 1 on 07/31/2020 by Vlad Rodríguez MD at [facility] Left: Clavicle [employer]/Ort ho [id number] / / [employer]/Orth o [id number] Evos 130mm 12 Hole Midshaft Clavicle Left Superior Small Plate - [id number] Implanted:Qty: 1 on 07/31/2020 by Vlad Rodríguez MD at [facility] Left: Clavicle [employer]/Ort ho [id number] / / [employer]/Orth o [id number] Evos 2.4mm 16mm Self Tap Self Retaining Drive Small Bone Long - [id number] Implanted:Qty: 1 on 07/31/2020 by Vlad Rodríguez MD at [facility] Left: Clavicle [employer]/Ort ho [id number] / / [employer]/Orth o [id number] Evos Mini 2.4mm 24mm Self Tap Cortex T7 Screw Bone Sterile - [id number] Implanted:Qty: 1 on 07/31/2020 by Vlad Rodríguez MD at [facility] Left: Clavicle [employer]/Ort ho [id number] / / [employer]/Orth o [id number] Evos 2.4mm 14mm Self Tap Self Retaining Drive Small Bone Long - [id number] Implanted:Qty: 2 on 07/31/2020 by Marcos, Vlad Portillo MD at [facility] Left: Clavicle [employer]/Ort ho [id number] / / [employer]/Orth o [id number] 2.4mm 3.8mm 20mm Self Retaining Screwdriver Self Tap Flat Head - [id number] Implanted:Qty: 2 on 07/31/2020 by Vlad Rodríguez MD at [facility] Left: Clavicle [employer]/Ort ho [id number] / / [employer]/Orth o [id number] Evos 3.5mm 12mm Self Tap Cortex Screw Bone Sterile - [id number] Implanted:Qty: 1 on 07/31/2020 by Vlad Rodríguez MD at [facility] Left: Clavicle [employer]/Ort ho [id number] / / [employer]/Orth o [id number] Evos 3.5mm 16mm Self Tap Cortex Screw Bone Sterile - [id number] Implanted:Qty: 2 on 07/31/2020 by Vlad Rodríguez MD at [facility] Left: Clavicle [employer]/Ort ho [id number] / / [employer]/Orth o [id number] Evos 3.5mm 26mm Self Tap Cortex Screw Bone Sterile - [id number] Implanted:Qty: 1 on 07/31/2020 by Vlad Rodríguez MD at [facility] Left: Clavicle [employer]/Ort ho [id number] / / [employer]/Orth o [id number] Evos 3.5mm 22mm Self Tap Cortex Screw Bone Sterile - [id number] Implanted:Qty: 1 on 07/31/2020 by Vlad Rodríguez MD at [facility] Left: Clavicle [employer]/Ort ho [id number] / / [employer]/Orth o [id number] Evos Mini 121mm 20 Hole Flex Low Profile Variable Angle Small - [id number] Implanted:Qty: 1 on 07/31/2020 by Vlad Rodríguez MD at [facility] Left: Clavicle [employer]/Ort ho [id number] / / Musculoskeletal Transplant [id number] 12.9w80x7bl Frozen Spine 7d Lordotic Trapezoid Spacer Allograft - [id number] - [id number] Implanted:Qty: 1 on 08/23/2020 by Daniel Clement MD at [facility] N/A: Spine Cervical Musculoskeletal Transplant 01/29/2025 [id number] / [id number] / Musculoskeletal Transplant [id number] 12.9m21p5nc Frozen Spine 7d Lordotic Trapezoid Spacer Allograft - [id number] - [id number] Implanted:Qty: 1 on 08/23/2020 by Daniel Clement MD at [facility] N/A: Spine Cervical Musculoskeletal Transplant 01/29/2025 [id number] / [id number] / [employer] [id number] 34mm 2 Level Spine Plate Bone - [id number] Implanted:Qty: 1 on 08/23/2020 by Daniel Clement MD at [facility] [employer] [id number] 34 / / [employer] [id number] Maxan 4mm 14mm Fix Angle Spine Screw Bone - [id number] Implanted:Qty: 2 on 08/23/2020 by Daniel Clement MD at [facility] [employer] 14-5215 14 / / [employer] [id number] 4mm 16mm Fix Screw Bone - [id number] Implanted:Qty: 4 on 08/23/2020 by Daniel Clement MD at [facility] [employer] 14-5215 16 / / Insurance [employer] SIG [id number] [employer] [facility] Advance Directives For more information, please contact: [phone] * Full Code (Latest Code Status on File) Date Activated Date Inactivated Comments 08/23/2020 3:47 PM 08/24/2020 6:32 PM * Full Code Date Activated Date Inactivated Comments 07/31/2020 1:40 AM 08/02/2020 12:07 AM Care Teams Donor Services Team Leader Relationship Specialty Start Date End Date Unknown, Notinfile PCP - General 09/25/24
--- OUTSIDE RECORDS SUMMARY | 2024-11-18 12:02 | XMS_ITS | Referral Summary ---
Author Organization [facility] [employer] Address [address] [place] [address] Care Team Providers Care Natural Resource Specialist Name Role Phone Unavailable Primary Care Provider Unavailabl e Source Comments [facility],non-owned Affiliates and Associated Physician Practices is amultiple site organization consisting of ambulatory clinics and hospital sitesin [place], [place], [place] and [place]. This disclosure is being madepursuant to the Care Everywhere program and may not contain all information available regarding this patient. Last updated 18.[facility] [employer] Allergies No known active allergies Medications * [...] e sinusitis, recurrence not specified, unspecified location [place] 2 sprays into each nostril once daily [...] Comments Blood Pressure 108/72 11/28/2018 5:24 PM ROPER OPERATOR Pulse 104 11/28/2018 5:24 PM ROPER OPERATOR Temperature 37.2 C (98.9 F) 11/28/2018 5:24 PM ROPER OPERATOR Respiratory Rate 16 11/28/2018 5:24 PM ROPER OPERATOR Oxygen Saturation 97% 11/28/2018 5:24 PM ROPER OPERATOR Inhaled Oxygen Concentration - - Weight 124.3 kg (274 lb) 11/28/2018 5:24 PM ROPER OPERATOR Height 190.5 cm (6' 3 ) 11/28/2018 5:24 PM ROPER OPERATOR Body Mass Index 34.25 11/28/2018 5:24 PM ROPER OPERATOR Plan of Treatment Not on file
[2024-11-18 21:15] LABS: Iron 169 ug/dL (49-181)
[2024-11-18 21:24] LABS: Percent Iron Saturation 64 % (20-50)
== END 2024-11-18 10:37 | disposition home or self-care (01) ==
LOC: ANHGOSHLAB 10:38
PROVIDERS: PCP Nurse Practitioner Family; Visit Provider Nurse Practitioner Family
DX: Z83.49 Family history of other endocrine, nutritional and metabolic diseases (principal)
CPT/HCPCS: 36415; 82728; 83540; 83550

== ENCOUNTER 2024-11-27 13:46 | Outpatient (CLI) | payer OTHER, SELFPAY ==
--- OUTSIDE RECORDS SUMMARY | 2024-11-27 14:02 | XMS_ITS | Encounter Summary ---
Author Organization [facility] Address [address] [place]it: [place] [address] Care Team Providers Care Lead Radiation Therapist Name Role Phone Brock Simpson MD Primary Care Provider [phone] Encounter Details Date Type Department Care Team (Late st Contact Info) Description 2000 Inpatient Historical Paras Calderón MD NO ADDRESS ON FILE Brock Simpson MD [address] [facility] [address] [id number] Single liveborn, born in hospital, delivered without mention of delivery (Primary Dx) Social History Tobacco Use Types Packs/Day Years Used Date Smoking Tobacco: Never Assessed Sex and Gender Information Value Date Recorded Sex Assigned at Not on file 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 Gender Identity Not on file Sexual Orientation Not on file documented as of this encounter Plan of Treatment Upcoming Encounters Date Type Department Care Team (Late st Contact Info) Description 03/16/2025 3:00 PM CDT Office Visit [facility] Oncology and Hematology - Alex [address] [place] [address] Rashaun Walker MD [address] [place] [address] documented as of this encounter Visit Diagnoses Diagnosis Single liveborn, born in hospital, delivered without mention of delivery- Primary documented in this encounter Care Teams Lead Radiation Therapist Relationship Specialty Start Date End Date Brock Simpson MD [address] [place] [address] PCP - General 00 documented as of this encounter
--- OUTSIDE RECORDS SUMMARY | 2024-11-27 14:02 | XMS_ITS | Clinical Summary ---
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 Gender Identity Not on file Sexual Orientation Not on file Plan of Treatment Upcoming Encounters Date Type Department Care Team (Late st Contact Info) Description 03/16/2025 3:00 PM CDT Office Visit [facility] Oncology and Hematology - Alex [address] [place] [address] [facility] [address] [place] [address] Rashaun Walker MD [address] [facility] [address] [place] [address] Health Maintenance Due Date Last Done Comments HPV VACCINES (1 - Male 3-dose series) 12/12/2015 DTAP/TDAP/TD VACCINES (1 - Tdap) 12/12/2019 HEPATITIS B VACCINES (1 of 3 - 19+ 3-dose series) 11/22 INFLUENZA VACCINE (#1) 2024 Insurance [facility] CHOICE [id number] Care Teams Motor Bike Mechanic Relationship Specialty Start Date End Date Brock Simpson MD [address] [phone] PCP - General 00
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
--- OUTSIDE RECORDS SUMMARY | 2024-11-27 14:03 | XMS_ITS | Clinical Summary ---
Author Organization [facility] [employer] Address [address] [place] [address] Care Team Providers Care Amf Mechanic Name Role Phone Unavailable Primary Care Provider Unavailabl e Source Comments [facility],non-owned Affiliates and Associated Physician Practices is amultiple site organization consisting of ambulatory clinics and hospital sitesin [place], [place], [place] and [place]. This disclosure is being madepursuant to the Care Everywhere program and may not contain all information available regarding this patient. Last updated 18.[facility] [employer] Allergies No known active allergies Medications * [...] e sinusitis, recurrence not specified, unspecified location [place] 2 sprays into each nostril once daily [...] Comments Blood Pressure 108/72 11/28/2018 5:24 PM METAL NEUTRALIZER Pulse 104 11/28/2018 5:24 PM METAL NEUTRALIZER Temperature 37.2 C (98.9 F) 11/28/2018 5:24 PM METAL NEUTRALIZER Respiratory Rate 16 11/28/2018 5:24 PM METAL NEUTRALIZER Oxygen Saturation 97% 11/28/2018 5:24 PM METAL NEUTRALIZER Inhaled Oxygen Concentration - - Weight 124.3 kg (274 lb) 11/28/2018 5:24 PM METAL NEUTRALIZER Height 190.5 cm (6' 3 ) 11/28/2018 5:24 PM METAL NEUTRALIZER Body Mass Index 34.25 11/28/2018 5:24 PM METAL NEUTRALIZER Plan of Treatment Health Maintenance Due Date [...]
--- OUTSIDE RECORDS SUMMARY | 2024-11-27 14:03 | XMS_ITS | Referral Summary ---
Author Organization [facility] [employer] Address [address] [place] [address] Care Team Providers Care Hot Saw Operator Name Role Phone Unavailable Primary Care Provider Unavailabl e Source Comments [facility],non-owned Affiliates and Associated Physician Practices is amultiple site organization consisting of ambulatory clinics and hospital sitesin [place], [place], [place] and [place]. This disclosure is being madepursuant to the Care Everywhere program and may not contain all information available regarding this patient. Last updated 18.[facility] [employer] Allergies No known active allergies Medications * [...] e sinusitis, recurrence not specified, unspecified location [place] 2 sprays into each nostril once daily [...] Comments Blood Pressure 108/72 11/28/2018 5:24 PM MERCHANT PATROLLER Pulse 104 11/28/2018 5:24 PM MERCHANT PATROLLER Temperature 37.2 C (98.9 F) 11/28/2018 5:24 PM MERCHANT PATROLLER Respiratory Rate 16 11/28/2018 5:24 PM MERCHANT PATROLLER Oxygen Saturation 97% 11/28/2018 5:24 PM MERCHANT PATROLLER Inhaled Oxygen Concentration - - Weight 124.3 kg (274 lb) 11/28/2018 5:24 PM MERCHANT PATROLLER Height 190.5 cm (6' 3 ) 11/28/2018 5:24 PM MERCHANT PATROLLER Body Mass Index 34.25 11/28/2018 5:24 PM MERCHANT PATROLLER Plan of Treatment Not on file
--- OUTSIDE RECORDS SUMMARY | 2024-11-27 14:03 | XMS_ITS | Patient Health Summary ---
Author Organization [facility] Address [address] [address] Care Team Providers Care Commodity Lead Name Role Phone Unavailable Primary Care Provider Unavailabl e Note from [facility][note 3],non-owned Affiliates and Associated Physician Practices is amultiple site organization consisting of ambulatory clinics and hospital sitesin [place], [place], [place] and [place]. This disclosure is being madepursuant to the Care Everywhere program and may not contain all information available regarding this patient. Last updated 18.[facility] [employer] Allergies No known active allergies Medications * Be aware that medications may not be up to date on this document. Alwaysverify current medications with the patient. * albuterol HFA (VENTOLIN HFA) 108 (90 BASE) MCG/ACT inhaler(Started 11/28/2018) Inhale 2 puffs by mouth every 6 hours as needed for Wheezing or Cough * fluticasone propionate (FLONASE) 50 MCG/ACT nasal spray(Started 11/28/2018) [place] 2 sprays into each nostril once daily [...] Comments Blood Pressure 108/72 11/28/2018 5:24 PM FUR CLIPPER Pulse 104 11/28/2018 5:24 PM FUR CLIPPER Temperature 37.2 C (98.9 F) 11/28/2018 5:24 PM FUR CLIPPER Respiratory Rate 16 11/28/2018 5:24 PM FUR CLIPPER Oxygen Saturation 97% 11/28/2018 5:24 PM FUR CLIPPER Inhaled Oxygen Concentration - - Weight 124.3 kg (274 lb) 11/28/2018 5:24 PM FUR CLIPPER Height 190.5 cm (6' 3 ) 11/28/2018 5:24 PM FUR CLIPPER Body Mass Index 34.25 11/28/2018 5:24 PM FUR CLIPPER Procedures * STREP A SCREEN - POINT OF CARE (AMB) STL(Performed 11/28/2018) Performed for Sore throat * INFLUENZA A+B - POINT OF CARE (AMB)(Performed 11/28/2018) Performed for Influenza Results * STREP A SCREEN - POINT OF CARE (AMB) STL (11/28/2018) Strep A Rapid POCT Negative Negative Strep A Internal Control Present Lot # [id number] Expiration Date 06/22/20 Throat ENTIRE THROAT (SURFACE REGION OF NECK) / Unknown 11/28/2018 [employer] COLLABORATING SUPERVISING PHYSICIAN-[employer]S AND SHOES SUPERVISOR LAB - POINT OF CARE ORDERABLES * (ABNORMAL) INFLUENZA A+B - POINT OF CARE (AMB) (11/28/2018) Influenza A Antigen Rapid Positive(A) Negative Influenza B Antigen Rapid Negative Negative Influenza Internal Control neg/pos NEGATIVE - POSITIVE Influenza Lot Number [id number] Influenza Expiration Date 06/16/20 Other NASOPHARYNGEAL SWAB / Unknown 11/28/2018 Bird Callow[employer] COLLABORATING SUPERVISING PHYSICIAN-BOOTS AND SHOES SUPERVISOR LAB - POINT OF CARE ORDERABLES
--- OUTSIDE RECORDS SUMMARY | 2024-11-27 14:03 | XMS_ITS | Clinical Summary ---
Author Organization [facility] Address [address] [place] [address] Care Team Providers Care Human Resources Hr Representative Name Role Phone None, Provider MD Primary [...] Done Comments Annual Physical 12/12/2003 PHQ-2 (Physician [employer]) 2012 HPV Vaccines (1 - Male 3-dos e series) 12/12/2015 Meningococcal B Vaccine (1 o f 2 - Standard) 2016 Hepatitis C 2018 DTaP, Tdap and Td Vaccines ( 1 - Tdap) 12/12/2019 Hepatitis B Vaccines (1 of 3 - 19+ 3-dose series) 12/12/2019 COVID-19 Vaccine (1 - 2023-2 5 season) 2024 Influenza Adult (#1) 2024 PHQ-2 (Physician [employer]) 09/23/2024 Meningococcal Vaccine Aged Out No andrew [...] to complete this topic Insurance [facility] Care Teams Human Resources Hr Representative Relationship Specialty Start Date End Date None, Provider, PCP - General UNKNOWN PHYSICIAN SPECIALTY 02/26/23
--- OUTSIDE RECORDS SUMMARY | 2024-11-27 14:03 | XMS_ITS | Clinical Summary ---
Author Organization [facility] [address] Address [address] [place] [address] Care Team Providers Care System Admin Name Role Phone Unknown, Notinfile Primary Care Provider Unavail able Allergies No known active allergies Medications ibuprofen 200 mg tab/cap Take 1 tablet/caps ule (200 mg total) by mouth every 6 (six) hours as needed for pain Active Active Problems Problem Noted Date Diagnosed Date Spinal stenosis in cervical region 08/09/2020 Overview (08/09/2020): Added automatically from request for surgery [id number] Closed displaced fracture of seventh cervical ve rtebra 08/09/2020 Overview (08/09/2020): Added automatically from request for surgery [id number] Closed displaced fracture of sixth cervical vertebra with delayed healing 08/05/2020 Overview (08/05/2020): Added automatically from request for surgery [id number] Closed fracture of right side of occipital [...] (07/31/2020): Added automatically from request for surgery [id number] Immunizations Immunization Administration Dates Next Due DTaP [...] on file 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 Gender Identity Not on file Sexual [...] 04/14/2015, 03/25/2002 Medical Devices Implanted Type Area Executive [employer] Device Identifier Shelf Expiration Date Model / Serial / Lot [employer]/Orth o [id number] Evos Mini 2.4mm 24mm Self Tap Cortex T7 Screw Bone Sterile - [id number] Implanted:Qty: 1 on 07/31/2020 by Vlad Rodríguez MD at [facility] Left: Clavicle [employer]Ort ho [id number] / / [employer]Orth o [id number] Evos 130mm 12 Hole Midshaft Clavicle Left Superior Small Plate - [id number] Implanted:Qty: 1 on 07/31/2020 by Vlad Rodríguez MD at [facility] Left: Clavicle [employer]Ort ho [id number] / / [employer]Orth o [id number] Evos 2.4mm 16mm Self Tap Self Retaining Drive Small Bone Long - [id number] Implanted:Qty: 1 on 07/31/2020 by Vlad Rodríguez MD at [facility] Left: Clavicle [employer]Ort ho [id number] / / [employer]Orth o [id number] Evos Mini 2.4mm 24mm Self Tap Cortex T7 Screw Bone Sterile - [id number] Implanted:Qty: 1 on 07/31/2020 by Vlad Rodríguez MD at [facility] Left: Clavicle [employer]Ort ho [id number] / / [employer]Orth o [id number] Evos 2.4mm 14mm Self Tap Self Retaining Drive Small Bone Long - [id number] Implanted:Qty: 2 on 07/31/2020 by Marcos, Vlad Portillo MD at [facility] Left: Clavicle [employer]Ort ho [id number] / / [employer]Orth o [id number] 2.4mm 3.8mm 20mm Self Retaining Screwdriver Self Tap Flat Head - [id number] Implanted:Qty: 2 on 07/31/2020 by Vlad Rodríguez MD at [facility] Left: Clavicle [employer]Ort ho [id number] / / [employer]Orth o [id number] Evos 3.5mm 12mm Self Tap Cortex Screw Bone Sterile - [id number] Implanted:Qty: 1 on 07/31/2020 by Vlad Rodríguez MD at [facility] Left: Clavicle [employer]Ort ho [id number] / / [employer]Orth o [id number] Evos 3.5mm 16mm Self Tap Cortex Screw Bone Sterile - [id number] Implanted:Qty: 2 on 07/31/2020 by Vlad Rodríguez MD at [facility] Left: Clavicle [employer]Ort ho [id number] / / [employer]Orth o [id number] Evos 3.5mm 26mm Self Tap Cortex Screw Bone Sterile - [id number] Implanted:Qty: 1 on 07/31/2020 by Vlad Rodríguez MD at [facility] Left: Clavicle [employer]Ort ho [id number] / / [employer]Orth o [id number] Evos 3.5mm 22mm Self Tap Cortex Screw Bone Sterile - [id number] Implanted:Qty: 1 on 07/31/2020 by Vlad Rodríguez MD at [facility] Left: Clavicle [employer]Ort ho [id number] / / [employer]Orth o [id number] Evos Mini 121mm 20 Hole Flex Low Profile Variable Angle Small - [id number] Implanted:Qty: 1 on 07/31/2020 by Vlad Rodríguez MD at [facility] Left: Clavicle [employer]Ort ho [id number] / / Musculoskeletal Transplant [id number] 12.7j45h4yt Frozen Spine 7d Lordotic Trapezoid Spacer Allograft - [id number] - [id number] Implanted:Qty: 1 on 08/23/2020 by Daniel Clement MD at [facility] N/A: Spine Cervical Musculoskeletal Transplant 01/29/2025 [id number] / [id number] / Musculoskeletal Transplant [id number] 12.9a99s0fm Frozen Spine 7d Lordotic Trapezoid Spacer Allograft - [id number] - [id number] Implanted:Qty: 1 on 08/23/2020 by Daniel Clement MD at [facility] N/A: Spine Cervical Musculoskeletal Transplant 01/29/2025 [id number] / [id number] / [employer] [id number] 34mm 2 Level Spine Plate Bone - [id number] Implanted:Qty: 1 on 08/23/2020 by Daniel Clement MD at [facility] [employer] [id number] / / [employer] [id number] Maxan 4mm 14mm Fix Angle Spine Screw Bone - [id number] Implanted:Qty: 2 on 08/23/2020 by Daniel Clement MD at [facility] [employer] [id number] / / [employer] [id number] 4mm 16mm Fix Screw Bone - [id number] Implanted:Qty: 4 on 08/23/2020 by Daniel Clement MD at [facility] [employer] [id number] 16 / / Insurance [facility]/PPO Address: [address] [place] [phone] [facility]/PPO Address: [address] [place] [phone] [facility]/PPO Address: [address] [address] [place] [address] Advance Directives For more information, please contact: [phone] * Full Code (Latest Code Status on File) Date Activated Date Inactivated Comments 08/23/2020 3:47 PM 08/24/2020 6:32 PM * Full Code Date Activated Date Inactivated Comments 07/31/2020 1:40 AM 08/02/2020 12:07 AM Care Teams System Admin Relationship Specialty Start Date End Date Unknown, Notinfile PCP - General 09/25/24
== END 2024-11-27 13:47 | disposition home or self-care (01) ==
LOC: ANHGOSHLAB 13:47
PROVIDERS: PCP Nurse Practitioner Family; Visit Provider Family Medicine
DX: Z83.49 Family history of other endocrine, nutritional and metabolic diseases (principal)
CPT/HCPCS: 36415; 81256